=== PATIENT | female | born 2000 | race Caucasian/White ===

== ENCOUNTER 2021-08-22 16:56 | Emergency (ER) | payer BC, MEDICAID ==
[~2021-08-22] VITALS: Ht 160 cm; Wt 118.2 kg
[2021-08-22 17:26] LABS: BASOPHILS # (AUTO) 0.1 X10'3 (0-0.2); BASOPHILS % (AUTO) 0.6 % (0-1); EOSINOPHILS # (AUTO) 0.3 X10'3 (0-0.9); EOSINOPHILS % (AUTO) 2.9 % (0-6); HEMATOCRIT 39.7 % (35.0-45.0); HEMOGLOBIN 13.1 g/dl (12.0-16.0); LYMPHOCYTES # (AUTO) 3.5 X10'3 (1.1-4.8); LYMPHOCYTES % (AUTO) 37.3 % (21-51); MEAN CORPUSCULAR HEMOGLOBIN 27.8 PG (27.0-31.0); MEAN CORPUSCULAR HGB CONC 32.9 g/dL (33.0-36.5); MEAN CORPUSCULAR VOLUME 84.5 FL (78-98); MEAN PLATELET VOLUME 9.2 FL (7.4-10.4); MONOCYTES # (AUTO) 0.6 X10'3 (0-0.9); MONOCYTES % (AUTO) 6.4 % (2-12); NEUTROPHILS # (AUTO) 4.9 X10'3 (1.8-7.7); NEUTROPHILS % (AUTO) 52.8 % (42-75); PLATELET COUNT 280 X10'3 (140-440); RED BLOOD COUNT 4.69 X10'6 (4.20-5.60); WHITE BLOOD COUNT 9.3 X10'3 (4.5-11.0)
[2021-08-22 17:37] LABS: ALANINE AMINOTRANSFERASE 48 U/L (12-78); ALBUMIN 4.1 G/DL (3.4-5.0); ALBUMIN/GLOBULIN RATIO 1.1 (1.1-1.5); ALKALINE PHOSPHATASE 65 IU/L (46-116); ANION GAP 9 (8-16); ASPARTATE AMINO TRANSFERASE 58 U/L (10-37); BILIRUBIN,TOTAL 0.2 MG/DL (0.1-1.0); BLOOD UREA NITROGEN 17 MG/DL (7-18); BUN/CREATININE RATIO 22.1 (6.6-38.0); CALCIUM 9.9 MG/DL (8.5-10.1); CHLORIDE 104 MMOL/L (99-107); CREATININE 0.77 MG/DL (0.40-0.90); GLUCOSE 112 MG/DL (70-104); LIPASE 140 U/L (73-393); POTASSIUM 3.6 MMOL/L (3.5-5.1); SODIUM 140 MMOL/L (135-145); TOTAL CARBON DIOXIDE 26.7 MMOL/L (24-32); TOTAL PROTEIN 7.8 G/DL (6.4-8.2); eGFR > 90 ML/MIN
[2021-08-22] MEDS ORDERED: LIDOcaine Viscous 15ml cup MM ONE (17:40)
[2021-08-22] MEDS ORDERED: mag hydrox/Alum hydrox/simeth 30ml oral suspension PO ONE (17:40)
[2021-08-22] MEDS ORDERED: ondansetron 4mg rapidly disintigrating tab PO ONE (17:40)
[2021-08-22] MEDS ORDERED: sucralfate 1 gm tablet PO ONE (17:40)
[2021-08-22 18:51] VITALS: BP 119/54
== END 2021-08-22 18:56 | disposition home or self-care (01) ==
LOC: ER 16:56
DX: R19.7 Diarrhea, unspecified (principal); R10.10 Upper abdominal pain, unspecified; R11.0 Nausea; E06.9 Thyroiditis, unspecified
CPT/HCPCS: 36415; 80053; 83690; 85025; 93005; 99284

== ENCOUNTER 2021-08-28 09:02 | Outpatient (CLI) | payer BC, MEDICAID ==
[2021-08-28 09:38] LABS: BASOPHILS # (AUTO) 0.1 X10'3 (0-0.2); EOSINOPHILS # (AUTO) 0.2 X10'3 (0-0.9); EOSINOPHILS % (AUTO) 2.3 % (0-6); HEMATOCRIT 37.3 % (35.0-45.0); HEMOGLOBIN 12.4 g/dl (12.0-16.0); LYMPHOCYTES # (AUTO) 1.9 X10'3 (1.1-4.8); LYMPHOCYTES % (AUTO) 26.4 % (21-51); MEAN CORPUSCULAR HGB CONC 33.2 g/dL (33.0-36.5); MEAN CORPUSCULAR VOLUME 84.5 FL (78-98); MEAN PLATELET VOLUME 9.2 FL (7.4-10.4); MONOCYTES # (AUTO) 0.4 X10'3 (0-0.9); MONOCYTES % (AUTO) 5.8 % (2-12); NEUTROPHILS # (AUTO) 4.6 X10'3 (1.8-7.7); NEUTROPHILS % (AUTO) 64.5 % (42-75); PLATELET COUNT 298 X10'3 (140-440); RED BLOOD COUNT 4.42 X10'6 (4.20-5.60); WHITE BLOOD COUNT 7.2 X10'3 (4.5-11.0)
[2021-08-28 09:40] LABS: CLARITY,URINE CLEAR (Clear); COLOR,URINE YELLOW (Yellow); GLUCOSE, URINE NEGATIVE (Neg); KETONES,URINE NEGATIVE (Neg); LEUKOCYTE ESTERASE ,URINE TRACE (Neg); NITRITES, URINE NEGATIVE (Neg); OCCULT BLOOD,URINE NEGATIVE (Neg); PH,URINE 6.5 (4.8-8.0); PROTEIN,URINE NEGATIVE (Neg); UROBILINOGEN,URINE 0.2 E.U/dL (0.2-1.0)
[2021-08-28 09:43] LABS: UA COLLECTION TYPE CLN CATCH MIDSTREAM
[2021-08-28 09:47] LABS: HEMOGLOBIN A1C 5.5 % (4.5-6.2)
[2021-08-28 09:48] LABS: BACTERIA,URINE NONE SEEN /HPF (Neg); RBC,URINE NONE SEEN /HPF (0-2); SQUAMOUS EPITHELIAL CELL,UR MANY /LPF (FEW); WBC,URINE 0-4 /HPF (0-4)
[2021-08-28 10:00] LABS: ALANINE AMINOTRANSFERASE 162 U/L (12-78); ALBUMIN 3.9 G/DL (3.4-5.0); ALKALINE PHOSPHATASE 82 IU/L (46-116); ANION GAP 10 (8-16); ASPARTATE AMINO TRANSFERASE 19 U/L (10-37); BILIRUBIN,TOTAL 0.3 MG/DL (0.1-1.0); BLOOD UREA NITROGEN 15 MG/DL (7-18); BUN/CREATININE RATIO 22.4 (6.6-38.0); CALCIUM 9.4 MG/DL (8.5-10.1); CHLORIDE 106 MMOL/L (99-107); CHOL/HDL RATIO 3.7 (0.00-4.99); CHOLESTEROL 174 MG/DL (0-200); CREATININE 0.67 MG/DL (0.40-0.90); GLUCOSE 88 MG/DL (70-104); HDL CHOLESTEROL 47 MG/DL (35-60); LDL CHOLESTEROL 108 MG/DL (50-100); POTASSIUM 4.1 MMOL/L (3.5-5.1); SODIUM 142 MMOL/L (135-145); TOTAL CARBON DIOXIDE 25.8 MMOL/L (24-32); TOTAL PROTEIN 7.7 G/DL (6.4-8.2); TRIGLYCERIDES 75 MG/DL (20-135); eGFR > 90 ML/MIN
== END 2021-08-28 23:59 | disposition home or self-care (01) ==
LOC: LAB 09:02
PROVIDERS: ATTEND Nurse Practitioner
DX: Z13.1 Encounter for screening for diabetes mellitus (principal); E03.9 Hypothyroidism, unspecified; E65 Localized adiposity; Z83.3 Family history of diabetes mellitus
CPT/HCPCS: 36415; 80053; 80061; 81001; 82306; 82607; 82746; 83036; 84439; 84443; 85025

== ENCOUNTER 2022-05-11 08:04 | Emergency (ER) | payer BC, MEDICAID ==
[~2022-05-11] VITALS: Ht 160 cm; Wt 120.0 kg
[2022-05-11] MEDS ORDERED: AMOX-117 PO (09:23)
[2022-05-11 09:31] VITALS: BP 161/94
== END 2022-05-11 09:33 | disposition home or self-care (01) ==
LOC: ER 08:06
DX: H65.91 Unspecified nonsuppurative otitis media, right ear (principal); J02.9 Acute pharyngitis, unspecified; R51.9 Headache, unspecified; E03.9 Hypothyroidism, unspecified; F12.90 Cannabis use, unspecified, uncomplicated; Z98.51 Tubal ligation status; Z98.890 Other specified postprocedural states; Z72.89 Other problems related to lifestyle
CPT/HCPCS: 99283

== ENCOUNTER 2022-09-07 15:41 | Emergency (ER) | payer BC, MEDICAID ==
[~2022-09-07] VITALS: Ht 160 cm; Wt 124.8 kg
[2022-09-07 16:23] LABS: CLARITY,URINE CLEAR (Clear); COLOR,URINE STRAW (Yellow); GLUCOSE, URINE NEGATIVE (Neg); KETONES,URINE NEGATIVE (Neg); LEUKOCYTE ESTERASE ,URINE NEGATIVE (Neg); NITRITES, URINE NEGATIVE (Neg); OCCULT BLOOD,URINE NEGATIVE (Neg); PH,URINE 6.5 (4.8-8.0); PROTEIN,URINE NEGATIVE (Neg); UROBILINOGEN,URINE 0.2 E.U/dL (0.2-1.0)
[2022-09-07 16:24] LABS: BASOPHILS # (AUTO) 0.1 X10'3 (0-0.2); BASOPHILS % (AUTO) 1.1 % (0-1); EOSINOPHILS # (AUTO) 0.2 X10'3 (0-0.9); EOSINOPHILS % (AUTO) 2.3 % (0-6); HEMATOCRIT 38.7 % (35.0-45.0); HEMOGLOBIN 12.9 g/dl (12.0-16.0); LYMPHOCYTES % (AUTO) 21.5 % (21-51); MEAN CORPUSCULAR HEMOGLOBIN 29.2 PG (27.0-31.0); MEAN CORPUSCULAR HGB CONC 33.4 g/dL (33.0-36.5); MEAN CORPUSCULAR VOLUME 87.5 FL (78-98); MEAN PLATELET VOLUME 9.4 FL (7.4-10.4); MONOCYTES # (AUTO) 0.5 X10'3 (0-0.9); MONOCYTES % (AUTO) 5.2 % (2-12); NEUTROPHILS # (AUTO) 6.4 X10'3 (1.8-7.7); NEUTROPHILS % (AUTO) 69.9 % (42-75); PLATELET COUNT 279 X10'3 (140-440); RED BLOOD COUNT 4.42 X10'6 (4.20-5.60); RED CELL DISTRIBUTION WIDTH 13.5 % (11.5-14.5); WHITE BLOOD COUNT 9.2 X10'3 (4.5-11.0)
[2022-09-07 16:25] LABS: URINE HCG NEGATIVE (NEG)
[2022-09-07 16:28] LABS: UA COLLECTION TYPE CLN CATCH MIDSTREAM
[2022-09-07 16:34] LABS: ALANINE AMINOTRANSFERASE 29 U/L (12-78); ALBUMIN 4.1 G/DL (3.4-5.0); ALBUMIN/GLOBULIN RATIO 1.3 (1.1-1.5); ALKALINE PHOSPHATASE 50 IU/L (46-116); ANION GAP 5 (8-16); ASPARTATE AMINO TRANSFERASE 16 U/L (10-37); BILIRUBIN,TOTAL 0.2 MG/DL (0.1-1.0); BLOOD UREA NITROGEN 10 MG/DL (7-18); CALCIUM 9.2 MG/DL (8.5-10.1); CHLORIDE 107 MMOL/L (99-107); CREATININE 0.83 MG/DL (0.40-0.90); GLUCOSE 134 MG/DL (70-104); LIPASE 105 U/L (73-393); POTASSIUM 4.1 MMOL/L (3.5-5.1); SODIUM 138 MMOL/L (135-145); TOTAL PROTEIN 7.3 G/DL (6.4-8.2); eGFR 84 ML/MIN
[2022-09-07] MEDS ORDERED: ketorolac trometh. 30mg/ml inj. IV ONE (16:55)
[2022-09-07] MEDS ORDERED: normal saline 1000ml 1,000 ML IV ONE (16:55)
[2022-09-07] MEDS ORDERED: HYDROcodone/acetaminophen 10/325mg tab PO ONE (17:25)
[2022-09-07] MEDS ORDERED: ONDA4TAB12 PO (17:51)
[2022-09-07] MEDS ORDERED: DICY10CA88 PO (17:51)
[2022-09-07] MEDS ORDERED: PANT-47 PO (17:51)
[2022-09-07] MEDS ORDERED: SUCR1ORA12 PO (17:51)
[2022-09-07] MEDS ORDERED: sucralfate 1 gm tablet PO ONE (18:40)
[2022-09-07 19:39] VITALS: BP 119/81
== END 2022-09-07 19:40 | disposition home or self-care (01) ==
LOC: ER 15:42
DX: R10.13 Epigastric pain (principal); E03.9 Hypothyroidism, unspecified; Z98.890 Other specified postprocedural states
CPT/HCPCS: 36415; 80053; 81003; 81025; 83690; 85025; 96361; 96374; 99283; J1885; J7030

== ENCOUNTER 2022-09-11 11:21 | Outpatient (CLI) | payer BC, MEDICAID ==
[~2022-09-11 11:21] MED LIST: DICY10CA88 PO; ONDA4TAB12 PO; PANT-47 PO; SUCR1ORA12 PO
== END 2022-09-11 23:59 | disposition home or self-care (01) ==
LOC: RAD 11:21
PROVIDERS: ATTEND Physician Assistant
DX: K80.20 Calculus of gallbladder without cholecystitis without obstruction (principal); R10.13 Epigastric pain
CPT/HCPCS: 76700

== ENCOUNTER 2022-12-09 05:34 | Day surgery (SDC) | payer BC, MEDICAID ==
[2022-12-07 13:19] LABS: BASOPHILS # (AUTO) 0.1 X10'3 (0-0.2); EOSINOPHILS # (AUTO) 0.2 X10'3 (0-0.9); EOSINOPHILS % (AUTO) 2.9 % (0-6); LYMPHOCYTES # (AUTO) 2.2 X10'3 (1.1-4.8); LYMPHOCYTES % (AUTO) 29.3 % (21-51); MEAN CORPUSCULAR HEMOGLOBIN 29.5 PG (27.0-31.0); MEAN CORPUSCULAR VOLUME 89.3 FL (78-98); MEAN PLATELET VOLUME 9.8 FL (7.4-10.4); MONOCYTES # (AUTO) 0.5 X10'3 (0-0.9); MONOCYTES % (AUTO) 6.4 % (2-12); NEUTROPHILS # (AUTO) 4.5 X10'3 (1.8-7.7); NEUTROPHILS % (AUTO) 60.4 % (42-75); PRE OP HEMATOCRIT 39.7 % (35.0-45.0); PRE OP HEMOGLOBIN 13.1 g/dL (12.0-16.0); PRE OP PLATELET COUNT 261 X10'3 (140-440); PRE OP WHITE BLOOD COUNT 7.4 10'3 (4.8-10.8); RED BLOOD COUNT 4.44 X10'6 (4.20-5.60); RED CELL DISTRIBUTION WIDTH 13.5 % (11.5-14.5)
[2022-12-07 13:27] LABS: ALBUMIN 4.1 G/DL (3.4-5.0); ALBUMIN/GLOBULIN RATIO 1.2 (1.1-1.5); ALKALINE PHOSPHATASE 46 IU/L (46-116); BLOOD UREA NITROGEN 9 MG/DL (7-18); BUN/CREATININE RATIO 11.7 (10.0-20.0); CALCIUM 9.6 MG/DL (8.5-10.1); CHLORIDE 104 MMOL/L (99-107); CREATININE 0.77 MG/DL (0.40-0.90); PRE OP ALT 28 U/L (30-65); PRE OP ANION GAP 9 (8-16); PRE OP AST 13 U/L (10-37); PRE OP BILIRUB, TOTAL 0.3 MG/DL (0.0-1.0); PRE OP GLUCOSE 93 MG/DL (70-104); PRE OP POTASSIUM 3.7 MMOL/L (3.4-5.1); PRE OP SODIUM 138 MMOL/L (135-145); TOTAL CARBON DIOXIDE 24.9 MMOL/L (24-32); TOTAL PROTEIN 7.4 G/DL (6.4-8.2); eGFR > 90 ML/MIN
[2022-12-07 13:42] LABS: HCG SERUM QL NEGATIVE
[2022-12-07 14:15] LABS: BILIRUBIN,URINE NEGATIVE (Neg); CLARITY,URINE SLIGHTLY CLOUDY (Clear); COLOR,URINE YELLOW (Yellow); GLUCOSE, URINE NEGATIVE (Neg); KETONES,URINE TRACE mg/dl (Neg); LEUKOCYTE ESTERASE ,URINE NEGATIVE (Neg); NITRITES, URINE NEGATIVE (Neg); OCCULT BLOOD,URINE NEGATIVE (Neg); PROTEIN,URINE NEGATIVE (Neg); UROBILINOGEN,URINE 0.2 E.U/dL (0.2-1.0)
[2022-12-07 14:16] LABS: UA COLLECTION TYPE CLN CATCH MIDSTREAM
[2022-12-07 14:33] LABS: BACTERIA,URINE FEW /HPF (Neg); CAL OXALATE CRYSTALS 3+ /HPF (NEGATIVE); MUCUS STRANDS MODERATE /LPF (Neg); RBC,URINE NONE SEEN /HPF (0-2); SQUAMOUS EPITHELIAL CELL,UR MANY /LPF (FEW); WBC,URINE 0-4 /HPF (0-4)
[2022-12-09] VITALS (8 sets, daily range): BP systolic 108–151; BP diastolic 55–100; PULSE 68–110; RESP 14–19; TEMP 97.6; O2SAT 94–100
[~2022-12-09] VITALS: Ht 160 cm; Wt 115.7 kg
[~2022-12-09 05:34] MED LIST changes: -DICY10CA88 PO; +DULO30CA52 PO; +LEVO75TA7 PO; -ONDA4TAB12 PO; -PANT-47 PO; -SUCR1ORA12 PO; +ceFOXitin 2GM-NS 100mL ADDvant 100 ML IV ONE; +famotidine 20mg tablet PO ONE; +ringers solution, lacted 1,000 ML IV SCH
[2022-12-09] MEDS ORDERED: BUPIVAcaine/PF 2.5 mg/ml (0.25%) 30ml vial ONE (07:26)
[2022-12-09] MEDS ORDERED: fentaNYL /PF 50mcg/ml 5ml ampule ONE (08:12)
[2022-12-09] MEDS ORDERED: propofol inj 20 ML IV ONE (08:12)
[2022-12-09] MEDS ORDERED: rocuronium 10mg/ml inj IV ONE (08:12)
[2022-12-09] MEDS ORDERED: midazolam 1 mg/ML 2ml injection ONE (08:12)
[2022-12-09] MEDS ORDERED: ondansetron/PF 4mg/2ml inj IV PRN (08:20)
[2022-12-09] MEDS ORDERED: ringers solution, lacted 1,000 ML IV SCH (08:20)
[2022-12-09] MEDS ORDERED: morphine 4 MG/ML inj SYRINge IV PRN (08:20)
[2022-12-09] MEDS ORDERED: proCHLORperazine 10 MG/2 ml inj IV PRN (08:20)
[2022-12-09] MEDS ORDERED: morphine 2 MG/ML inj. syringe IV PRN (08:20)
[2022-12-09] MEDS ORDERED: meperidine/PF 25mg/ml syringe IV PRN ×3 (08:20)
[2022-12-09] MEDS ORDERED: sevoflurane 250ml liquid IH ONE (08:24)
[2022-12-09] MEDS ORDERED: ondansetron/PF 4mg/2ml inj ONE (09:10)
[2022-12-09] MEDS ORDERED: acetaminophen 1,000mg/100ml IV 100 ML IV ONE (09:10)
[2022-12-09] MEDS ORDERED: dexamethasone sod phosphate 4mg/ml inj. ONE (09:10)
[2022-12-09] MEDS ORDERED: glycopyrrolate 0.2mg/ml inj ONE (09:15)
[2022-12-09] MEDS ORDERED: neostigmine methylsulfate 1 MG/ML 10ml vial ONE (09:15)
--- NOTE | 2022-12-09 09:27 | NUR ---
Received from OR via [facility] , accompanied by Anesthesiologist MARBIN and report given by Anesthesiolgist. PATIENT WITH 20G PIV IN RIGHT HAND RUNNING LR AT 100. LAP SITES TO ABDOMEN ARE CDI. NO DRAINAGE. MEDICATED FOR PAIN UPON ARRIVAL AND WILL CONTINUE TO ASSESS AND TREAT. 10-10 ABDOMINAL PAIN. Addendum: 12/09/22 at 0945 by Bowen Mcknight RN, RN Amended: Links added.
[2022-12-09] MEDS ORDERED: midazolam 1 mg/ML 2ml injection IV ONE (09:35)
--- NOTE | 2022-12-09 09:46 | NUR ---
DISCUSSED AND PATIENT DEMONSTRATED GOOD USE OF INCENTIVE SPIROMETER. 1500 ON PULLS. ALSO DISCUSSED HER SNORING AND INSTRUCTED HER AND FAMILY TO MAKE SURE SOMEONE IS WITH HER 24/ FOR 24 HRS POST OP FOR POSSIBLE OBSTRUCTION WHILE RESTING. ALL DC ORDERS COVERED AND UNDERSTOOD WELL. Addendum: 12/09/22 at 0949 by Bowen Mcknight RN, RN Amended: Links added.
[2022-12-09] MEDS ORDERED: HYDROcodone/acetaminophen 5mg/325mg tablet PO ONE (09:55)
--- NOTE | 2022-12-09 10:27 | NUR ---
PT HAS MET D/C CRITERIA. IV D/C'D. VSS. DRESSING C/D/I. ICE INTACT. PT STILL HAS TINGLING TO LEFT HAND WHICH IS TO BE EXPECTED AND MD AWARE. I HAVE REVIEWED D/C INSTRUCTIONS WITH PATIENT AND SHE HAS VERBALIZED UNDERSTANDING OF INSTRUCTIONS. PATIENT D/C HOME WITH ALL BELONGINGS. MOTHER DRESSED PATIENT AND I PREMEDICATED PATIENT WITH ORAL PILL FOR PAIN MANAGEMENT. PAIN AT A TOLERABLE LEVEL AT THIS TIME. ALL DC INSTRUCTIONS GIVEN TO MOTHER OVER THE PHONE. ALSO DISCUSSED SLEEP APNEA 2' SNORING HISTORY. FAMILY AGREES TO LOOK AFTER PATIENT X24 HOURS. Addendum: 12/09/22 at 1149 by Bowen Mcknight RN, RN Amended: Links added.
== END 2022-12-09 11:53 | disposition home or self-care (01) ==
LOC: PAS 05:34
PROVIDERS: ATTEND Surgery
DX: K80.10 Calculus of gallbladder with chronic cholecystitis without obstruction (principal); F32.A Depression, unspecified; E03.9 Hypothyroidism, unspecified; G43.909 Migraine, unspecified, not intractable, without status migrainosus; F41.9 Anxiety disorder, unspecified; E66.01 Morbid (severe) obesity due to excess calories; Z68.42 Body mass index [BMI] 45.0-49.9, adult; Z87.891 Personal history of nicotine dependence; Z79.899 Other long term (current) drug therapy; Z98.890 Other specified postprocedural states; Z98.51 Tubal ligation status
CPT/HCPCS: 36415; 47562; 80053; 81001; 82948; 84703; 85025; J0131; J0694; J1100; J2250; J2270; J2405; J2704; J2710; J3010; J3490; J7030; J7120; Z7506; Z7508; Z7512; A4215; A4618; A7000

== ENCOUNTER 2022-12-30 08:21 | Outpatient (CLI) | payer BC, MEDICAID ==
[~2022-12-30 08:21] MED LIST changes: -ceFOXitin 2GM-NS 100mL ADDvant 100 ML IV ONE; -famotidine 20mg tablet PO ONE; -ringers solution, lacted 1,000 ML IV SCH
[2022-12-30 10:25] LABS: CHOL/HDL RATIO 3.6 (0.00-4.99); CHOLESTEROL 167 MG/DL (0-200); FREE T4 (FREE THYROXINE) 0.94 NG/DL (0.73-1.40); HDL CHOLESTEROL 46 MG/DL (35-60); LDL CHOLESTEROL 100 MG/DL (50-100); THYROID STIMULATING HORMONE 3.59 ulU/ml (0.34-4.50); TRIGLYCERIDES 110 MG/DL (20-135)
== END 2022-12-30 23:59 | disposition home or self-care (01) ==
LOC: LAB 08:21
PROVIDERS: ATTEND Physician Assistant
DX: R53.83 Other fatigue (principal); E78.5 Hyperlipidemia, unspecified
CPT/HCPCS: 36415; 80061; 84439; 84443

== ENCOUNTER 2023-04-04 14:10 | Emergency (ER) | payer BC, MEDICAID ==
[~2023-04-04] VITALS: Ht 160 cm; Wt 114.0 kg
[2023-04-04 14:19] VITALS: TEMP 98
[2023-04-04 17:29] VITALS: BP 157/92; PULSE 87; RESP 18; O2SAT 99
== END 2023-04-04 17:32 | disposition home or self-care (01) ==
LOC: ER 14:11
DX: R07.89 Other chest pain (principal); E03.9 Hypothyroidism, unspecified; F12.90 Cannabis use, unspecified, uncomplicated; Z98.891 History of uterine scar from previous surgery; Z98.51 Tubal ligation status; Z79.899 Other long term (current) drug therapy
CPT/HCPCS: 71045; 93005; 99283

== ENCOUNTER → 2023-11-03 | Outpatient (CLI) | payer BC, MEDICAID ==
[2023-11-03 08:46] LABS: BASOPHILS # (AUTO) 0.1 X10'3 (0-0.2); EOSINOPHILS # (AUTO) 0.2 X10'3 (0-0.9); LYMPHOCYTES # (AUTO) 1.9 X10'3 (1.1-4.8)
[2023-11-03 08:48] LABS: BASOPHILS % (AUTO) 0.9 % (0-1); EOSINOPHILS % (AUTO) 2.6 % (0-6); HEMATOCRIT 39.2 % (35.0-45.0); MEAN CORPUSCULAR HEMOGLOBIN 29.5 PG (27.0-31.0); MEAN CORPUSCULAR HGB CONC 33.1 g/dL (33.0-36.5); MEAN PLATELET VOLUME 8.6 FL (7.4-10.4); MONOCYTES # (AUTO) 0.4 X10'3 (0-0.9); MONOCYTES % (AUTO) 4.9 % (2-12); NEUTROPHILS # (AUTO) 6.1 X10'3 (1.8-7.7); NEUTROPHILS % (AUTO) 69.6 % (42-75); PLATELET COUNT 301 X10'3 (140-440); WHITE BLOOD COUNT 8.8 X10'3 (4.5-11.0)
[2023-11-03 09:21] LABS: LITHIUM 0.6 MMOL/L (0.8-1.2)
[2023-11-03 09:46] LABS: ALANINE AMINOTRANSFERASE 28 U/L (12-78); ALKALINE PHOSPHATASE 39 IU/L (46-116); ANION GAP 10 (8-16); ASPARTATE AMINO TRANSFERASE 14 U/L (10-37); BILIRUBIN,TOTAL 0.4 MG/DL (0.1-1.0); BLOOD UREA NITROGEN 14 MG/DL (7-18); BUN/CREATININE RATIO 16.3 (10.0-20.0); CALCIUM 9.3 MG/DL (8.5-10.1); CHLORIDE 103 MMOL/L (99-107); CHOL/HDL RATIO 3.2 (0.00-4.99); CHOLESTEROL 174 MG/DL (0-200); CREATININE 0.86 MG/DL (0.40-0.90); FREE T4 (FREE THYROXINE) 0.93 NG/DL (0.73-1.40); GLUCOSE 92 MG/DL (70-104); HDL CHOLESTEROL 55 MG/DL (35-60); LDL CHOLESTEROL 104 MG/DL (50-100); POTASSIUM 4.1 MMOL/L (3.5-5.1); SODIUM 137 MMOL/L (135-145); THYROID STIMULATING HORMONE 4.82 ulU/ml (0.34-4.50); TRIGLYCERIDES 82 MG/DL (20-135); eGFR 80 ML/MIN
[2023-11-03 09:48] LABS: TOTAL PROTEIN 7.9 G/DL (6.4-8.2)
[2023-11-04 14:59] LABS: FOLATE SERUM(FOLIC) 10.9 ng/mL (>3.0)
== END | disposition home or self-care (01) ==
LOC: RAD 08:11
PROVIDERS: ATTEND Registered Nurse
DX: Z13.220 Encounter for screening for lipoid disorders (principal); Z00.00 Encounter for general adult medical examination without abnormal findings; E03.9 Hypothyroidism, unspecified; R63.5 Abnormal weight gain; R00.2 Palpitations; R60.9 Edema, unspecified; Z79.899 Other long term (current) drug therapy
CPT/HCPCS: 36415; 80053; 80061; 80178; 82607; 82746; 84439; 84443; 85025

== ENCOUNTER 2024-02-29 10:44 | Emergency (ER) | payer BC, MEDICAID ==
[~2024-02-29] VITALS: Ht 157.5 cm; Wt 123.7 kg
[2024-02-29 10:53] VITALS: TEMP 97
[2024-02-29 11:16] LABS: BASOPHILS % (AUTO) 0.5 % (0-1); EOSINOPHILS # (AUTO) 0.1 X10'3 (0-0.9); EOSINOPHILS % (AUTO) 1.2 % (0-6); HEMOGLOBIN 13.5 g/dl (12.0-16.0); LYMPHOCYTES # (AUTO) 0.7 X10'3 (1.1-4.8); LYMPHOCYTES % (AUTO) 11.8 % (21-51); MEAN CORPUSCULAR HEMOGLOBIN 29.2 PG (27.0-31.0); MEAN CORPUSCULAR HGB CONC 32.8 g/dL (33.0-36.5); MEAN CORPUSCULAR VOLUME 89.1 FL (78-98); MEAN PLATELET VOLUME 8.5 FL (7.4-10.4); MONOCYTES # (AUTO) 0.4 X10'3 (0-0.9); NEUTROPHILS # (AUTO) 5.1 X10'3 (1.8-7.7); NEUTROPHILS % (AUTO) 80.5 % (42-75); PLATELET COUNT 267 X10'3 (140-440); RED CELL DISTRIBUTION WIDTH 13.5 % (11.5-14.5); WHITE BLOOD COUNT 6.4 X10'3 (4.5-11.0)
[2024-02-29 11:31] LABS: ALANINE AMINOTRANSFERASE 25 U/L (12-78); ALBUMIN 3.8 G/DL (3.4-5.0); ALKALINE PHOSPHATASE 67 IU/L (46-116); AMYLASE 26 U/L (25-115); ANION GAP 9 (8-16); ASPARTATE AMINO TRANSFERASE 22 U/L (10-37); BILIRUBIN,TOTAL 0.2 MG/DL (0.1-1.0); BLOOD UREA NITROGEN 8 MG/DL (7-18); BUN/CREATININE RATIO 10.5 (10.0-20.0); CALCIUM 8.8 MG/DL (8.5-10.1); CHLORIDE 107 MMOL/L (99-107); CREATININE 0.76 MG/DL (0.40-0.90); GLUCOSE 101 MG/DL (70-104); LIPASE 23 U/L (16-77); POTASSIUM 3.9 MMOL/L (3.5-5.1); SODIUM 140 MMOL/L (135-145); TOTAL CARBON DIOXIDE 23.6 MMOL/L (24-32); TOTAL PROTEIN 7.7 G/DL (6.4-8.2); eCRCL 90 ML/MIN; eGFR > 90 ML/MIN
[2024-02-29 11:33] LABS: BILIRUBIN,URINE NEGATIVE (Neg); CLARITY,URINE CLEAR (Clear); COLOR,URINE YELLOW (Yellow); GLUCOSE, URINE NEGATIVE (Neg); KETONES,URINE NEGATIVE (Neg); LEUKOCYTE ESTERASE ,URINE NEGATIVE (Neg); NITRITES, URINE NEGATIVE (Neg); OCCULT BLOOD,URINE NEGATIVE (Neg); PROTEIN,URINE 30 mg/dl (Neg); UA COLLECTION TYPE CLN CATCH MIDSTREAM; UROBILINOGEN,URINE 0.2 E.U/dL (0.2-1.0)
[2024-02-29 11:36] LABS: URINE HCG NEGATIVE (NEG)
[2024-02-29] MEDS: mag hydrox/Alum hydrox/simeth 30ml oral suspension PO ONE (11:38)
[2024-02-29] MEDS: LIDOcaine 2% Viscous 15ml cup MM STA (11:40)
[2024-02-29 11:42] LABS: BACTERIA,URINE FEW /HPF (Neg); FINE GRANULAR CAST 0-3 /LPF (NEGATIVE); RBC,URINE 0-2 /HPF (0-2); SQUAMOUS EPITHELIAL CELL,UR MODERATE /LPF (FEW); TRANSITIONAL EPI CELLS,URINE FEW /HPF; WBC,URINE 0-4 /HPF (0-4)
[2024-02-29] MEDS ORDERED: PANT20TA18 PO (12:08)
[2024-02-29 12:51] VITALS: BP 132/83; PULSE 89; RESP 18; O2SAT 100
== END 2024-02-29 12:52 | disposition home or self-care (01) ==
LOC: ER 10:45
DX: K29.00 Acute gastritis without bleeding (principal); E03.9 Hypothyroidism, unspecified; F41.9 Anxiety disorder, unspecified; F12.90 Cannabis use, unspecified, uncomplicated; Z98.51 Tubal ligation status; Z79.899 Other long term (current) drug therapy; Z98.890 Other specified postprocedural states
CPT/HCPCS: 36415; 80053; 81001; 81025; 82150; 83690; 85025; 99283

== ENCOUNTER 2024-06-21 09:38 | Emergency (ER) | payer BC, MEDICAID ==
[~2024-06-21] VITALS: Ht 157.5 cm; Wt 123.5 kg
[~2024-06-21 09:38] MED LIST changes: +PANT20TA18 PO
[2024-06-21 09:56] VITALS: BP 150/80; PULSE 70; RESP 18; TEMP 97.7; O2SAT 98
[2024-06-21] MEDS ORDERED: CEPH-585 PO (10:21)
== END 2024-06-21 10:30 | disposition home or self-care (01) ==
LOC: ER 09:39
DX: T24.212A Burn of second degree of left thigh, initial encounter (principal); E03.9 Hypothyroidism, unspecified; F41.9 Anxiety disorder, unspecified; F12.90 Cannabis use, unspecified, uncomplicated; Z98.51 Tubal ligation status; Z98.890 Other specified postprocedural states; Z79.899 Other long term (current) drug therapy; X08.8XXA Exposure to other specified smoke, fire and flames, initial encounter; Y93.89 Activity, other specified; Y92.89 Other specified places as the place of occurrence of the external cause; Y99.8 Other external cause status
CPT/HCPCS: 99283

== ENCOUNTER 2024-06-30 08:35 | Emergency (ER) | payer BC, MEDICAID ==
[~2024-06-30] VITALS: Ht 157.5 cm; Wt 122.7 kg
[2024-06-30 08:39] VITALS: BP 119/72; PULSE 80; O2SAT 98
[2024-06-30 09:07] LABS: BASOPHILS # (AUTO) 0.1 X10'3 (0-0.2); BASOPHILS % (AUTO) 0.6 % (0-1); EOSINOPHILS # (AUTO) 0.1 X10'3 (0-0.9); EOSINOPHILS % (AUTO) 1.4 % (0-6); HEMATOCRIT 40.8 % (35.0-45.0); HEMOGLOBIN 13.5 g/dl (12.0-16.0); LYMPHOCYTES # (AUTO) 1.3 X10'3 (1.1-4.8); LYMPHOCYTES % (AUTO) 15.8 % (21-51); MEAN CORPUSCULAR HEMOGLOBIN 29.4 PG (27.0-31.0); MEAN CORPUSCULAR HGB CONC 33.1 g/dL (33.0-36.5); MEAN CORPUSCULAR VOLUME 88.8 FL (78-98); MEAN PLATELET VOLUME 8.7 FL (7.4-10.4); MONOCYTES # (AUTO) 0.8 X10'3 (0-0.9); MONOCYTES % (AUTO) 9.3 % (2-12); NEUTROPHILS % (AUTO) 72.9 % (42-75); PLATELET COUNT 309 X10'3 (140-440); WHITE BLOOD COUNT 8.3 X10'3 (4.5-11.0)
[2024-06-30 09:21] LABS: CLARITY,URINE CLOUDY (Clear); COLOR,URINE ORANGE (Yellow)
[2024-06-30 09:22] LABS: URINE HCG NEGATIVE (NEG)
[2024-06-30 09:24] LABS: ALANINE AMINOTRANSFERASE 76 U/L (12-78); ALBUMIN 3.9 G/DL (3.4-5.0); ALBUMIN/GLOBULIN RATIO 0.9 (1.1-1.5); ALKALINE PHOSPHATASE 67 IU/L (46-116); ASPARTATE AMINO TRANSFERASE 39 U/L (10-37); BILIRUBIN,TOTAL 0.3 MG/DL (0.1-1.0); BLOOD UREA NITROGEN 8 MG/DL (7-18); BUN/CREATININE RATIO 9.1 (10.0-20.0); CALCIUM 9.1 MG/DL (8.5-10.1); CREATININE 0.88 MG/DL (0.40-0.90); GLUCOSE 87 MG/DL (70-104); LIPASE 32 U/L (16-77); TOTAL CARBON DIOXIDE 26.2 MMOL/L (24-32); TOTAL PROTEIN 8.2 G/DL (6.4-8.2); eCRCL 77 ML/MIN; eGFR 78 ML/MIN
[2024-06-30 09:26] LABS: UA COLLECTION TYPE CLN CATCH MIDSTREAM
[2024-06-30 09:27] LABS: BACTERIA,URINE 2+ /HPF (Neg); MUCUS STRANDS FEW /LPF (Neg); SQUAMOUS EPITHELIAL CELL,UR MODERATE /LPF (FEW)
[2024-06-30 09:27] LABS: ANION GAP 8 (8-16); CHLORIDE 105 MMOL/L (99-107); POTASSIUM 3.9 MMOL/L (3.5-5.1); SODIUM 139 MMOL/L (135-145)
[2024-06-30 10:31] VITALS: RESP 16
[2024-06-30] MEDS ORDERED: SULF1TAB49 PO (11:16)
[2024-06-30] MEDS ORDERED: FAMO20TA8 PO (11:16)
[2024-06-30] MEDS ORDERED: SUCR1TAB34 PO (11:16)
[2024-06-30] MEDS: famotidine 20mg tablet PO ONE (11:20)
[2024-06-30] MEDS: mag hydrox/Alum hydrox/simeth 30ml oral suspension PO ONE (11:20)
[2024-06-30] MEDS: sulfamethoxazole/trimethoprim DS (800/160mg) tablet PO ONE (11:36)
[2024-06-30 11:39] VITALS: TEMP 97.9
== END 2024-06-30 11:40 | disposition home or self-care (01) ==
LOC: ER 08:35
DX: K29.00 Acute gastritis without bleeding (principal); N39.0 Urinary tract infection, site not specified; E03.9 Hypothyroidism, unspecified; F12.90 Cannabis use, unspecified, uncomplicated; Z98.51 Tubal ligation status
CPT/HCPCS: 36415; 80053; 81001; 81025; 83690; 85025; 87088; 99284